=== PATIENT | male | born 1955 | race Caucasian/White ===

== ENCOUNTER 2022-09-29 15:50 | Emergency (ER) | payer OTHER, MEDICAID ==
[~2022-09-29] VITALS: Ht 175.3 cm; Wt 77.1 kg
[2022-09-29 15:52] VITALS: BP 137/73
--- NOTE | 2022-09-29 15:57 | NUR ---
BIBA BED 8
[2022-09-29 16:20] LABS: BASOPHILS % (AUTO) 0.6 % (0.0-2.0); EOSINOPHILS # (AUTO) 0.1 K/uL (0-0.4); EOSINOPHILS % (AUTO) 0.9 % (0.0-4.0); HEMATOCRIT 23.1 % (36-52); LYMPHOCYTES # (AUTO) 0.9 K/uL (2.0-11.5); LYMPHOCYTES % (AUTO) 12.3 % (20.5-51.1); MEAN CORPUSCULAR HEMOGLOBIN 28 pg (27-31); MEAN CORPUSCULAR HGB CONC 35 g/dL (33-37); MEAN CORPUSCULAR VOLUME 80.8 fL (80-94); MONOCYTES # (AUTO) 0.5 K/uL (0.8-1.0); MONOCYTES % (AUTO) 6.7 % (1.7-9.3); NEUTROPHILS % (AUTO) 79.5 % (42.2-75.2); PLATELET COUNT (AUTO) 249 K/uL (140-450); RED BLOOD CELL COUNT(AUTO) 2.86 MIL/uL (4.20-6.10); RED CELL DISTRIBUTION WIDTH 15.3 % (11.6-13.7); WHITE BLOOD COUNT (AUTO) 7.5 K/uL (4.8-10.8)
--- NOTE | 2022-09-29 16:23 | NUR ---
67 Y/O M BIB ALS RUN SQUAD 101 C/C SYNCOPAL EPISODE. PT WITNESSED BY BYSTANDERS FALLING OUT OF WHEELCHAIR, +LOC. PT REPORTS DRINKING [place] TODAY. [facility]CS 15. 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 BS 390. PER PT HE WALKED ABOUT ONE MILE TO THE STORE TO BUY [employer] TICKETS AND DID NOT TAKE HIS MEDICATIONS TODAY. PMH: CVA, DM
--- NOTE | 2022-09-29 16:30 | NUR ---
PT TAKEN TO CT VIA [facility]
--- NOTE | 2022-09-29 16:38 | NUR ---
PT RETURN FROM CT
[2022-09-29 16:49] LABS: ALBUMIN 2.9 g/dL (3.4-5.0); ANION GAP 19.3 (8-16); ASPARTATE AMINOTRANSFERASE 12 U/L (15-37); CARBON DIOXIDE 16.6 mmol/L (21-32); CHLORIDE 102 mmol/L (98-107); GFR ARICAN-AMERICAN 18 mL/min (>90); GLUCOSE 344 mg/dL (74-106); POTASSIUM 3.9 mmol/L (3.5-5.1); SODIUM SERUM 134 mmol/L (136-145); TOTAL BILIRUBIN 0.2 mg/dL (0.0-1.0)
[2022-09-29 16:51] LABS: CREATININE 4.2 mg/dL (0.6-1.3); UREA NITROGEN, BLOOD 72 mg/dL (7-18)
[2022-09-29] MEDS ORDERED: NACL 0.9% 1,000 ML IV ONE (16:55)
--- NOTE | 2022-09-29 17:03 | NUR ---
X-RAY AT BEDSIDE.
--- NOTE | 2022-09-29 17:36 | NUR ---
18 G IV STARTED BY EMS.
[2022-09-29] MEDS ORDERED: [UNRECOGNIZED DRUG - CODE] (17:49)
[2022-09-29] MEDS ORDERED: LISI20TA29 PO (17:49)
[2022-09-29] MEDS ORDERED: [UNRECOGNIZED DRUG - CODE] SUBQ (17:49)
[2022-09-29] MEDS ORDERED: DAPA5TAB PO (17:49)
[2022-09-29] MEDS ORDERED: INSU100S22 SUBQ (17:49)
[2022-09-29] MEDS ORDERED: HYDR-4004 PO (17:49)
[2022-09-29] MEDS ORDERED: CLOP75TA55 PO (17:49)
[2022-09-29] MEDS ORDERED: TAMS0.4C97 PO (17:49)
[2022-09-29] MEDS ORDERED: ACET-9520 PO (17:49)
[2022-09-29] MEDS ORDERED: AMLO10TA88 PO (17:49)
[2022-09-29] MEDS ORDERED: INSU100I28 SUBQ (17:49)
[2022-09-29] MEDS ORDERED: PANT40EC56 PO (17:49)
[2022-09-29] MEDS ORDERED: GLIM1TAB23 PO (17:49)
[2022-09-29] MEDS ORDERED: [UNRECOGNIZED DRUG - CODE] (17:49)
[2022-09-29] MEDS ORDERED: METO-747 PO (17:49)
[2022-09-29] MEDS ORDERED: HYDR50TA38 PO (17:49)
[2022-09-29] MEDS ORDERED: LANC-486 TP (17:49)
--- NOTE | 2022-09-29 17:50 | NUR ---
CALL DARÍO () OR JAI (SON) AT [phone] FOR ANY QUESTIONS.
[2022-09-29 18:39] LABS: BARBITURATE, URINE NEGATIVE ng/ml (NEG <=200); BENZODIAZEPINE, URINE NEGATIVE ng/mL (NEG <=200); CANNABINOID, URINE NEGATIVE ng/mL (NEG <=50); COCAINE, URINE NEGATIVE ng/mL (NEG <=300); OPIATE, URINE NEGATIVE ng/mL (NEG <=2000); PHENCYCLIDINE SCREEN,URINE NEGATIVE ng/mL (NEG <=25)
--- NOTE | 2022-09-29 19:24 | NUR ---
GAVE REPORT TO KALYANI AMOR.
--- NOTE | 2022-09-29 19:30 | NUR ---
ASSUMED CARE OF PT AT THIS TIME. PT IN POSITION OF COMFORT AT THIS TIME. PT UP AND AMBULATES TO RESTROOM USING WALKER. PT CONTINUES TO GET UP AND ASKING TO GO HOME. WILL ATTEMPT TO CALL FAMILY. AWAITING TRANSPORTATION TO [facility].
--- NOTE | 2022-09-29 20:30 | NUR ---
PT UP AND AMBULATES TO RESTROOM USING WALKER. PT CONTINUES TO ASK ABOUT GOING HOME. I HAVE ATTMEPTED SEVERAL TIMES TO CONTACT FAMILY. UNABLE TO DO SO. AWAITING TRANSPORT.
--- NOTE | 2022-09-29 22:48 | NUR ---
CLINICAL DOCUMENTATION SPEC MEÑO [id number]
--- NOTE | 2022-09-29 22:57 | NUR ---
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
--- NOTE | 2022-09-29 23:23 | NUR ---
[facility] AT BEDSIDE FOR TRANSPORT
[2022-09-29 23:40] VITALS: BP 142/68
--- NOTE | 2022-09-29 23:40 | NUR ---
REPORT TO [facility] AT THIS TIME. PT A&OX3, RR EVEN AND UNLABORED. NO S/S OF DISTRESS NOTED. VSS. PT GOING TO [facility] ROOM 108B
--- NOTE | 2022-09-29 23:40 | NUR ---
Patient to be transferred to [facility]. Is being transferred due to INSURANCE. Receiving facility has accepting physician and available space. ER physician has signed transfer form. Patient or responsible green party has agreed to transfer and signed form. Patient belongings inventoried and will be sent with patient. Copy of nursing notes, lab reports, EKG, Physicians Orders and X-rays to be sent with patient. Report called to FUENTES Devi RN at receiving facility. [facility] ambulance service has been called for transfer.
--- NOTE | 2022-09-30 00:05 | NUR ---
Levy Devi RN CALLED BACK FROM [facility]. REPORT GIVEN AT THIS TIME. LEVY Devi RN VERBALIZES FULL UNDERSTANDING, ALSO AWARE PT IS IN ROUTE WITH [facility] AT THIS TIME.
== END 2022-09-29 23:40 | disposition short-term general hospital (02) ==
LOC: MED 15:50
DX: N17.9 Acute kidney failure, unspecified (principal); Z20.822 Contact with and (suspected) exposure to COVID-19; R55 Syncope and collapse; E87.1 Hypo-osmolality and hyponatremia; E86.0 Dehydration
CPT/HCPCS: 36415; 70450; 71045; 72125; 80053; 80305; 84484; 85025; 87426; 93005; 96360; 99285; G0482; Q0092